=== PATIENT | female | born 1985 | race Hispanic/Latino ===

== ENCOUNTER 2022-02-22 20:20 | Emergency (ER) | payer SELFPAY ==
[2022-02-22] MEDS ORDERED: KETOROLAC 30 MG/ML INJ ONE (21:26)
[2022-02-22] MEDS ORDERED: ONDANSETRON 4 MG/2 ML VIAL ONE (21:26)
[2022-02-22] MEDS ORDERED: NA CHLORIDE 0.9% 1,000 ML ONE (21:26)
[2022-02-22] MEDS ORDERED: FAMOTIDINE 20 MG/2 ML VIAL IV ONE (21:27)
[2022-02-22 21:44] LABS: Urine Blood Trace-intact (Negative); Urine Glucose Negative (Negative); Urine Protein Negative (Negative); Urine Specific Gravity >=1.030 (1.005-1.030); Urine pH 6.5 (5.0-7.0)
[2022-02-22 22:03] LABS: Absolute Lymphocytes (CBC) 3.4 K/uL (0.7-4.9)
[2022-02-22 22:24] LABS: Urine Bacteria <20 /HPF (<20); Urine Mucus 1+ /HPF (NONE SEEN); Urine RBC <5 /HPF (NONE SEEN)
[2022-02-22 22:40] LABS: Hematocrit 36.8 % (36.0-45.0); Lymphocytes % 39.2 % (15.3-44.8); MPV 8.7 fL (7.6-11.3)
[2022-02-22 22:50] LABS: Albumin 4.1 g/dL (3.4-5.0); Bilirubin Total 0.3 mg/dL (0.2-1.0); Potassium 3.3 mmol/L (3.5-5.1); Protein, Total 7.6 g/dL (6.4-8.2)
[2022-02-23] MEDS ORDERED: CEFTRIAXONE 1000 MG/VIAL ONE
[2022-02-23] MEDS ORDERED: NA CHLORIDE 0.9% 50 ML ONE
--- NOTE | 2022-02-23 00:24 | ER ---
Nurse's Notes [facility] Name: Radha Hardin Age: 36 yrs Sex: Female : 1985 Arrival Date: 02/22/2022 Time: 20:24 Bed 15 Private MD: Diagnosis: Other cholelithiasis without obstruction Presentation: 02/22 20:45 Chief complaint: Patient states: right upper quadrant radiating to the back with nausea lg3 and body chills. started last night and went away and started back again today this afternoon and getting worse. Coronavirus screen: Client denies travel out of the [place] in the last 14 days. At this time, the client does not indicate any symptoms associated with coronavirus-19. Ebola Screen: No symptoms or risks identified at this time. Initial Sepsis Screen: Does the patient meet any 2 criteria? No. Patient's initial sepsis screen is negative. Does the patient have a suspected source of infection? No. Patient's initial sepsis screen is negative. Risk Assessment: Do you want to hurt yourself or someone else? Patient reports no desire to harm self or others. Onset of symptoms was February 21, 2022. 20:45 Method Of Arrival: Ambulatory lg3 20:45 Acuity: MORENITA 3 lg3 Triage Assessment: 20:48 General: Appears in no apparent distress. uncomfortable, Behavior is calm, cooperative. lg3 Pain: Complains of pain in right upper quadrant Pain radiates to back Pain currently is 10 out of 10 on a pain scale. EENT: No deficits noted. No signs and/or symptoms were reported regarding the EENT system. Neuro: No deficits noted. Level of Consciousness is awake, alert, obeys commands, Oriented to person, place, time, situation. Cardiovascular: No deficits noted. Denies chest pain, shortness of breath, Capillary refill < 3 seconds Clubbing of nail beds is absent JVD is absent Patient's skin is warm and dry. Respiratory: No deficits noted. Airway is patent Trachea midline Respiratory effort is even, unlabored, Respiratory pattern is regular, symmetrical. GI: Abdomen is round non-distended, Abd is soft X 4 quads Abdomen is tender to palpation in right upper quadrant Reports upper abdominal pain, cramping, nausea. : No deficits noted. No signs and/or symptoms were reported regarding the genitourinary system. Derm: No deficits noted. No signs and/or symptoms reported regarding the dermatologic system. Skin is intact, is healthy with good turgor, Skin is dry, Skin is pink, warm \T\ dry. Musculoskeletal: No deficits noted. No signs and/or symptoms reported regarding the musculoskeletal system. Circulation, motion, and sensation intact. Range of motion: intact in all extremities. 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 last was 2 years ago. lg3 Historical: - Allergies: 20:48 No Known Allergies; lg3 - Home Meds: 20:48 None [Active]; lg3 - PMHx: 20:48 None; lg3 - PSHx: 20:48 None; lg3 - Immunization history:: Adult Immunizations not up to date, Client reports receiving the 2nd dose of the Covid vaccine, moderna X2. - Social history:: Smoking status: Patient denies any tobacco usage or history of. Patient/guardian denies using alcohol, street drugs. Screenin:52 Abuse screen: Denies threats or abuse. Denies injuries from another. Nutritional lg3 screening: No deficits noted. Tuberculosis screening: No symptoms or risk factors identified. Fall Risk No fall in past 12 months (0 pts). No secondary diagnosis (0 pts). IV access (20 points). Ambulatory Aid- None/Bed Rest/Nurse Assist (0 pts). Gait- Normal/Bed Rest/Wheelchair (0 pts) Mental Status- Oriented to own ability (0 pts). Total Buckley Fall Scale indicates No Risk (0-24 pts). Assessment: 21:00 General: Appears uncomfortable, Behavior is calm, cooperative. Pain: Complains of pain ll3 in epigastric area Pain currently is 10 out of 10 on a pain scale. Pain began 1 day ago. Is continuous. Neuro: Level of Consciousness is awake, alert, obeys commands, Oriented to person, place, time, situation. Respiratory: Respiratory effort is even, unlabored, Respiratory pattern is regular, symmetrical. GI: Abdomen is round non-distended, Bowel sounds present X 4 quads. Abd is soft and non tender X 4 quads. Reports upper abdominal pain, Patient currently denies diarrhea, vomiting. Derm: Skin is pink, warm \T\ dry. 22:00 Reassessment: No changes from previously documented assessment. Patient and/or family ll3 updated on plan of care and expected duration. Pain level reassessed. Patient is alert, oriented x 3, equal unlabored respirations, skin warm/dry/pink. 23:37 Reassessment: Patient and/or family updated on plan of care and expected duration. Pain ll3 level reassessed. Patient is alert, oriented x 3, equal unlabored respirations, skin warm/dry/pink. States pain is 5/10 Patient states feeling better. 02/23 00:05 Reassessment: Pt tolerated PO challenge well, ERP notified. ll3 00:33 Reassessment: Patient and/or family updated on plan of care and expected duration. Pain vc1 level reassessed. Patient is alert, oriented x 3, equal unlabored respirations, skin warm/dry/pink. Patient states feeling better. Patient states symptoms have improved. Vital Signs: 02/22 20:45 BP 128 / 85; Pulse 64; Resp 17 S; Temp 97.9(O); Pulse Ox 100% on R/A; Weight 68.04 kg lg3 (R); Height 5 ft. 2 in. (157.48 cm) (R); Pain 10/10; 22:00 BP 113 / 66; Pulse 65; Resp 18; Pulse Ox 100% on R/A; ll3 23:00 BP 101 / 68; Pulse 57; Resp 17; Pulse Ox 100% on R/A; ll3 02/23 00:10 BP 106 / 71; Pulse 63; Resp 17; Pulse Ox 100% on R/A; ll3 02/22 20:45 Body Mass Index 27.44 (68.04 kg, 157.48 cm) lg3 ED Course: 02/22 20:24 Patient arrived in ED. kz 20:31 Pelon Almeida PA is PHCP. cp 20:31 Kang Donald MD is Attending Physician. cp 20:48 Triage completed. lg3 20:48 Arm band placed on left wrist. lg3 21:48 Initial lab(s) drawn, by me, sent to lab. Inserted saline lock: 22 gauge in right ll3 antecubital area, using aseptic technique. Blood collected. 23:35 Glendy Regalado RN is Primary Nurse. ll3 23:38 Patient has correct armband on for positive identification. Bed in low position. Call ll3 light in reach. Side rails up X 1. Adult w/ patient. 23:50 Hiram Garcia MD is Referral Physician. cp 02/23 00:11 No provider procedures requiring assistance completed. ll3 00:20 Abdomen Limited US In Process Unspecified. EDMS 00:30 IV discontinued, intact, bleeding controlled, No redness/swelling at site. Pressure vc1 dressing applied. Administered Medications: 02/22 21:48 Drug: NS 0.9% 1000 ml Route: IV; Rate: 1 bolus; Site: right antecubital; ll3 02/23 00:11 Follow up: Response: No adverse reaction; IV Status: Completed infusion; IV Intake: ll3 1000ml 02/22 21:48 Drug: Ketorolac 15 mg Route: IVP; Site: right antecubital; ll3 02/23 00:11 Follow up: Response: No adverse reaction; Pain is decreased ll3 02/22 21:50 Drug: Zofran (Ondansetron) 4 mg Route: IVP; Site: right antecubital; ll3 02/23 00:12 Follow up: Response: No adverse reaction ll3 02/22 21:53 Drug: Pepcid (famotidine) 20 mg Route: IVP; Site: right antecubital; ll3 02/23 00:12 Follow up: Response: No adverse reaction ll3 00:05 Drug: Rocephin - (cefTRIAXone) 1 grams Route: IVPB; Infused Over: 30 mins; Site: right ll3 antecubital; 00:31 Drug: GI Cocktail without - (Maalox Suspension 30 ml, Lidocaine Liquid 2 % 15 vc1 ml) Route: PO; 00:32 Follow up: Response: No adverse reaction; Medication administered at discharge. vc1 00:32 Drug: Bentyl (dicyclomine) 20 mg Route: PO; vc1 00:32 Follow up: Response: No adverse reaction; Medication administered at discharge. vc1 Intake: 00:11 IV: 1000ml; Total: 1000ml. ll3 Outcome: 02/22 23:51 Discharge ordered by . cp 02/23 00:32 Discharged to home ambulatory, with friend. vc1 Condition: good Discharge instructions given to patient, friend, Instructed on discharge instructions, follow up and referral plans. medication usage, Demonstrated understanding of instructions, follow-up care, medications, Prescriptions given X 2. 00:33 Patient left the ED. vc1 Signatures: Dispatcher [employer] EDMS Pelon Almeida PA PA cp Gibson, Lacie, RN RN lg3 Glendy Regalado RN RN ll3 Dorothy Aarngo RN RN vc1 Ellyn Vivar Corrections: (The following items were deleted from the chart) 02/22 23:10 23:10 GI: ll3 ll3 23:39 20:52 Fall Risk None identified. lg3 ll3
--- NOTE | 2022-02-23 00:24 | EDPHYS ---
Physician Documentation [facility] Name: Radha Hardin Age: 36 yrs Sex: Female : 1985 Arrival Date: 02/22/2022 Time: 20:24 Bed 15 Private MD: ED Physician Kang Donald HPI: 02/22 21:10 This 36 yrs old Female presents to ER via Ambulatory with complaints of cp Abdominal Pain - Upper right. 21:10 The patient presents with abdominal pain in the epigastric area, in the right upper cp quadrant. Onset: The symptoms/episode began/occurred yesterday, resolved and returned this afternoon. The symptoms radiate to back. Associated signs and symptoms: Pertinent positives: nausea, Pertinent negatives: chest pain, constipation, diarrhea, dysuria, fever, palpitations, shortness of breath, vomiting. 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 last was 2 years ago. lg3 Historical: - Allergies: 20:48 No Known Allergies; lg3 - Home Meds: 20:48 None [Active]; lg3 - PMHx: 20:48 None; lg3 - PSHx: 20:48 None; lg3 - Immunization history:: Adult Immunizations not up to date, Client reports receiving the 2nd dose of the Covid vaccine, moderna X2. - Social history:: Smoking status: Patient denies any tobacco usage or history of. Patient/guardian denies using alcohol, street drugs. ROS: 21:15 Constitutional: Negative for body aches, chills, fever, poor PO intake. cp 21:15 Eyes: Negative for injury, pain, redness, and discharge. cp 21:15 ENT: Negative for drainage from ear(s), ear pain, sore throat, difficulty swallowing, difficulty handling secretions. 21:15 Cardiovascular: Negative for chest pain, edema, palpitations. 21:15 Respiratory: Negative for cough, shortness of breath, wheezing. 21:15 Abdomen/GI: Positive for abdominal pain, nausea, Negative for vomiting, diarrhea, constipation. 21:15 Back: Positive for radiated pain, Negative for injury or acute deformity, decreased range of motion. 21:15 : Negative for urinary symptoms. 21:15 All other systems are negative. Exam: 21:20 Constitutional: The patient appears in no acute distress, alert, awake, cp non-diaphoretic, non-toxic, well developed, well nourished, uncomfortable. 21:20 Head/Face: Normocephalic, atraumatic. cp 21:20 Eyes: Periorbital structures: appear normal, Conjunctiva: normal, no exudate, no injection, Sclera: no appreciated abnormality, Lids and lashes: appear normal, bilaterally. 21:20 ENT: External ear(s): are unremarkable, Nose: is normal, Mouth: Lips: moist, Oral mucosa: moist, Posterior pharynx: Airway: no evidence of obstruction, patent. 21:20 Chest/axilla: Inspection: normal, Palpation: is normal, no crepitus, no tenderness. 21:20 Cardiovascular: Rate: normal, Rhythm: regular. 21:20 Respiratory: the patient does not display signs of respiratory distress, Respirations: normal, no use of accessory muscles, no retractions, labored breathing, is not present, Breath sounds: are clear throughout, no decreased breath sounds, no stridor, no wheezing. 21:20 Abdomen/GI: Inspection: abdomen appears normal, Bowel sounds: active, all quadrants, Palpation: soft, in all quadrants, moderate abdominal tenderness, in the epigastric area, rebound tenderness, is not appreciated, voluntary guarding, is elicited in the epigastric area. 21:20 Back: pain, that is moderate, of the mid back area, ROM is normal. Vital Signs: 20:45 BP 128 / 85; Pulse 64; Resp 17 S; Temp 97.9(O); Pulse Ox 100% on R/A; Weight 68.04 kg lg3 (R); Height 5 ft. 2 in. (157.48 cm) (R); Pain 10/10; 22:00 BP 113 / 66; Pulse 65; Resp 18; Pulse Ox 100% on R/A; ll3 23:00 BP 101 / 68; Pulse 57; Resp 17; Pulse Ox 100% on R/A; ll3 02/23 00:10 BP 106 / 71; Pulse 63; Resp 17; Pulse Ox 100% on R/A; ll3 02/22 20:45 Body Mass Index 27.44 (68.04 kg, 157.48 cm) lg3 MDM: 02/22 20:56 Patient medically screened. cp 23:50 Data reviewed: vital signs, nurses notes, lab test result(s), radiologic studies, cp ultrasound, and as a result, I will discharge patient. 23:50 Counseling: I had a detailed discussion with the patient and/or guardian regarding: the cp historical points, exam findings, and any diagnostic results supporting the discharge/admit diagnosis, lab results, radiology results, the need for outpatient follow up, for definitive care, a general surgeon, to return to the emergency department if symptoms worsen or persist or if there are any questions or concerns that arise at home. Response to treatment: the patient's symptoms have markedly improved after treatment, and as a result, I will discharge patient. ED course: VSS. Pain and nausea markedly improved. Will discharge to home for continued monitoring. 02/22 21:08 Order name: CBC with Diff cp 02/22 21:08 Order name: CMP cp 02/22 21:08 Order name: Lipase cp 02/22 21:08 Order name: Urine Microscopic Only cp 02/22 21:44 Order name: Urine Dipstick-Ancillary; Complete Time: 22:41 EDHI 02/22 22:41 Interpretation: Normal except: UKET Trace; UBLD Trace-intact. cp 02/22 21:08 Order name: Abdomen Limited US cp 02/23 00:20 Order name: Urine Culture EDHI 02/22 21:08 Order name: IV Saline Lock; Complete Time: 21:54 cp 18 21:08 Order name: Labs collected and sent; Complete Time: 21:54 cp 02/22 21:08 Order name: Urine Dipstick-Ancillary (obtain specimen); Complete Time: 21:54 cp 02/22 21:08 Order name: Urine Test (obtain specimen); Complete Time: 21:54 cp 02/22 21:08 Order name: NPO; Complete Time: 21:55 cp 02/22 23:48 Order name: PO challenge; Complete Time: 00:05 cp Administered Medications: 21:48 Drug: NS 0.9% 1000 ml Route: IV; Rate: 1 bolus; Site: right antecubital; ll3 02/23 00:11 Follow up: Response: No adverse reaction; IV Status: Completed infusion; IV Intake: ll3 1000ml 02/22 21:48 Drug: Ketorolac 15 mg Route: IVP; Site: right antecubital; ll3 02/23 00:11 Follow up: Response: No adverse reaction; Pain is decreased ll3 02/22 21:50 Drug: Zofran (Ondansetron) 4 mg Route: IVP; Site: right antecubital; ll3 02/23 00:12 Follow up: Response: No adverse reaction ll3 02/22 21:53 Drug: Pepcid (famotidine) 20 mg Route: IVP; Site: right antecubital; ll3 02/23 00:12 Follow up: Response: No adverse reaction ll3 00:05 Drug: Rocephin - (cefTRIAXone) 1 grams Route: IVPB; Infused Over: 30 mins; Site: right ll3 antecubital; 00:31 Drug: GI Cocktail without - (Maalox Suspension 30 ml, Lidocaine Liquid 2 % 15 vc1 ml) Route: PO; 00:32 Follow up: Response: No adverse reaction; Medication administered at discharge. vc1 00:32 Drug: Bentyl (dicyclomine) 20 mg Route: PO; vc1 00:32 Follow up: Response: No adverse reaction; Medication administered at discharge. vc1 Disposition: 00:44 Co-signature as Attending Physician, Kang Donald MD I agree with the assessment and kdr plan of care. Disposition Summary: 02/22/22 23:51 Discharge Ordered Location: Home cp Problem: new cp Symptoms: have improved cp Condition: Stable cp Diagnosis - Other cholelithiasis without obstruction cp Followup: cp - With: Hiram Garcia MD - When: 1 - 2 days - Reason: Recheck today's complaints Discharge Instructions: - Discharge Summary Sheet cp - Cholelithiasis cp Forms: - Medication Reconciliation Form cp - Thank You Letter cp - Antibiotic Education cp - Prescription Opioid Use cp Prescriptions: - Zofran 4 mg Oral Tablet - take 1 tablet by ORAL route every 12 hours As needed; 20 tablet; Refills: 0, cp Product Selection Permitted - Cipro 500 mg Oral Tablet - take 1 tablet by ORAL route every 12 hours for 7 days; 14 tablet; Refills: 0, cp Product Selection Permitted - dicyclomine 20 mg Oral Tablet - take 1 tablet by ORAL route 4 times per day As needed; 30 tablet; Refills: 0, cp Product Selection Permitted Signatures: Dispatcher [employer] MS Rittger, MD MD clay Kapadia Corey, PA PA cp Gibson, Lacie, RN RN lg3 Glendy Regalado, RN RN ll3 Dorothy Arango, RN RN vc1
[2022-02-23] MEDS ORDERED: LIDOCAINE VISCOUS 2% SOLN 15 ML UDC ONE (00:31)
[2022-02-23] MEDS ORDERED: DICYCLOMINE HCL 10 MG CAP ONE (00:31)
[2022-02-23] MEDS ORDERED: MAGNES/ALUMIN/SIMET 30ML UCUP ONE (00:31)
[2022-02-23 06:48] VITALS: TEMP 97.9; O2SAT 100
[2022-02-23 06:53] VITALS: BP 106/71
--- NOTE | 2022-02-23 08:50 | RAD REPORT ---
EXAM DESCRIPTION: US - Abdomen Exam Limited - 02/22/2022 10:22 pm CLINICAL HISTORY: RUQ/epigastric pain COMPARISON: No comparisons FINDINGS: The gallbladder demonstrates shadowing gallstone region gallbladder neck. Gallbladder appe ars distended. Gallbladder wall measures up to 3 mm. The common bile duct is normal measuring 3 mm. The liver demonstrates no findings of intrahepatic biliary dilatation. IMPRESSION: Cholelithiasis.
== END 2022-02-23 00:33 | disposition home or self-care (01) ==
LOC: ER 20:20
DX: K80.80 Other cholelithiasis without obstruction (principal)
CPT/HCPCS: 36415; 76705; 80053; 81003; 81015; 83690; 85025; 87086; 87088; 96361; 96374; 96375; 99284; J2405; J3490; J7030

== ENCOUNTER 2022-12-14 13:05 | Inpatient (IN) | payer SELFPAY ==
--- OUTSIDE RECORDS SUMMARY | 2022-12-14 13:07 | XMS REPORT | Continuity of Care Document ---
:1985 Author Organization [facility] t Address [address] [place] [address] Care Team Providers Name Role Phone GIANA PEREZ Primary Care Physician Unavailable Mac Cordero Attending Clinician Unavailable Gisella Wooten Attending Clinician Unavailable NORRIS THOMASON Attending Clinician Unavailable Doctor Unassigned, [place] Attending Clinician Unavailable PAMELA LOPEZ Attending Clinician Unavailable Mac Cordero Admitting Clinician Unavailable Payers Payer Name Policy Type Policy Number Effective Date Expiration Date S ource Problems Condition Condition Condition Status Onset Resolution Last Treating Co mments Source Name Details Category Date Date Treatment Clinician Date Second-deg Second-deg Disease Active 2007-11 U nivers ree ree 2-09 ity of perineal perineal 00:00: [place] laceration laceration 00 Me dical , with , with Branch delivery delivery Allergies, Adverse Reactions, Alerts Allergy Allergy Status Severity Reaction(s) Onset Inactive Treating Comm ents Source Name Type Date Date Clinician No Known DA Active U 2019-0 [facility] Allergie 6-28 Clear s 00:00: Issa 00 [facility] No Known DA Active U 2019-0 [facility] Allergie 6-28 Clear s 00:00: Issa 00 [facility] No Known DA Active U [facility] Allergie 1-27 Clear s 00:00: [place] [facility] NO KNOWN Drug Active Univers ALLERGIE Class ity of S [facility] Social History Social Habit Start Date Stop Date Quantity Comments Source Alcohol intake 2008-08-30 2008-08-30 Current University 00:00:00 00:00:00 non-drinker of [facility] alcohol Dickens (finding) Sex Assigned At [birth year] Universit y of 00:00:00 00:00:[address] [facility] Smoking Status Start Date Stop Date Source Never smoked tobacco [facility] Medications Ordered Filled Start Stop Current Ordering Indication Dosage Frequency Signature Comments Components Source Medication Medication Date Date Medication? Clinician (SIG) Name Name FERROUS 2007-11 Yes 1 oral Univers SULFATE 325 2-10 daily ity of MG (65 MG 08:32: [place] IRON) ORAL 35 Medical CPSR Branch 2007-11 Yes 1 oral Univers VITAMIN 2-10 daily ity of ORAL 08:32: [place] 35 Medical Branch Procedures Procedure Date / Time Performed Performing Clinician [facility] e REFERRAL- 2022-12-14 06:01:00 Doctor Unassigned, No [facility] [place] REQUEST/RESPONSE Name Medical Branch [id number] 2020-05-04 00:00:00 PERLY [facility] [id number] 2020-05-04 00:00:00 BRANDYY [facility] Encounters Start End Encounter Admission Attending Care Care Encounter Source Date/Time Date/Time Type Type Clinicians Facility Department ID 2020-05-07 Inpatient Maximos, [facility] OUTD [id number] [facility] Will [facility] MART [id number] [facility] 04:28:00 Pucmckennay, 86 Clear Gisella [facility] 2022-12-14 2022-12-14 Orders Doctor LAWRENCE [id number] Univers 00:00:00 00:00:00 Only UnassignedGRACE [id number] ity of [place] [facility] [id number] Julio as [phone] [facility] 009 Branch 2022-12-10 2022-12-10 Outpatient SFA SFA [id number] Jasvir 11:20:25 11:20:25 0203 F Roc 2022-11-24 2022-11-24 Outpatient [facility] [id number] Jasvir 09:51:39 09:51:39 0118 F Roc 2020-02-11 2020-02-11 Outpatient Isma LOPEZ [facility] [id number] Univers 13:00:00 13:00:00 KAMARTEODORO quintero f [facility] Results Test Description Test Time Test Comments Results Result [facility] e Comments BREAST ULTRASOUND 2022-11-29 BILATERAL 11:08:43 Name: Radha : 1985 Sex: F - BREAST ULTRASOUND BILATERALCOMPLETE ULTRASOUND OF BOTH BREASTS AND AXILLA: 11/29/2022LINICAL: Family history of breast cancer, Pain left breast, Abnormal Breast Exam. Comparison is made to exam dated 11/29/2022 mammogram - [facility] Color flow and real-time ultrasound of both breasts four quadrants, retroareolar, and axilla regions were performed. There is a 9 mm irregular mass in the left breast at 2 o'clock 6 cm from the nipple. Color flow imaging demonstrates that there is increased vascularity. There also is a lymph node with eccentric cortical thickening in the left axillary tail. There is a 1.4 cm oval mass in the left breast at 3 o'clock 3 cm from the nipple. Color flow imaging demonstrates that there is no vascularity present. No significant abnormalities were seen sonographically in the right axilla. Benign cysts and dilated ducts seen bilaterally. IMPRESSION: SUSPICIOUS OF MALIGNANCY The 9 mm irregular mass in the left breast at 2 o'clock needs histological evaluation. An ultrasound guided biopsy is recommended. The lymph node with eccentric cortical thickening in the left axillary tail needs histological evaluation. An ultrasound guided biopsy is recommended. The 1.4 cm oval mass in the left breast at 3 o'clock is probably benign. Abigail Shultz M.D. dm/:11/29/2022 11:08:43 Net Lead Developer: Brenda RUSH, [facility] BI-RADS: 4 Suspicious for malignancy DIAG MAMM 2022-11-29 BILATERAL ROCK 11:03:26 CAD DIGITAL Name: Radha: 1985 Sex: F - DIAG MAMM BILATERAL ROCK CAD DIGITALBILATERAL FIRST EVER DIGITAL DIAGNOSTIC MAMMOGRAM 3D/2D WITH CAD: 11/29/2022LINICAL: Per order, "unspecified lump in the left breast, inner quadrant with left nipple retraction". Per patient, lump is felt on 3 o'clock on the left breast x 1 week. Family history of breast cancer. Digital breast tomosynthesis was performed in addition to routine CC and MLO views. Current mammographic images were evaluated by [facility] CAD (computer-aided detection) software. No prior exams were available for comparison. The tissue of both breasts is heterogeneously dense. This may lower the sensitivity of mammography. There is architectural distortion in the left breast at 2 o'clock. There is nipple retraction associated with the architectural distortion. There is a pathological lymph node in the left axilla. No other significant masses, calcifications, or other findings are seen in either breast. IMPRESSION: INCOMPLETE: ADDITIONAL IMAGING EVALUATION NEEDEDBilateral ultrasound pending for additional evaluation. Abigail Shultz M.D. dm/:11/29/2022 11:03:26 Net Lead Developer: Yaneth RUSH, [facility] BI-RADS: 0 Incomplete: Additional Imaging Evaluation Needed CBC W/AUTO DIFF 2020-05-05 09:08:00 Test Item Value Reference Range Interpretation Comme nts WHITE BLOOD CELL (test code = WBC) 7.80 x10 3/uL 4.5-11.0 N RED BLOOD CELL (test code = RBC) 3.74 x10 6/uL 3.54-5.02 N HEMOGLOBIN (test code = HGB) 10.9 g/dL 11.0-15.0 L HEMATOCRIT (test code = HCT) 33.8 % 33.0-45.0 N MEAN CELL VOLUME (test code = MCV) 90.4 fL 81.0-99.0 N MEAN CELL HGB (test code = MCH) 29.1 pg 27.0-33.0 N MEAN CELL HGB CONCETRATION (test code = MCHC) 32.2 g/dL 33.0-37. 0 L RED CELL DISTRIBUTION WIDTH CV (test code = RDW) 12.6 % 11.5- 14.5 N RED CELL DISTRIBUTION WIDTH SD (test code = RDW-SD) 40.8 fL 37 .0-54.0 N PLATELET COUNT (test code = PLT) 233 x10 3/uL 150-400 N MEAN PLATELET VOLUME (test code = MPV) 11.8 fL 7.0-9.0 H NEUTROPHIL % (test code = NT%) 63.9 % 56.0-77.0 N IMMATURE GRANULOCYTE % (test code = IG%) 0.3 % 0.0-2.0 N LYMPHOCYTE % (test code = LY%) 29.6 % 14.0-32.0 N MONOCYTE % (test code = MO%) 5.6 % 4.8-9.0 N EOSINOPHIL % (test code = EO%) 0.3 % 0.3-3.7 N BASOPHIL % (test code = BA%) 0.3 % 0.0-2.0 N NUCLEATED RBC % (test code = NRBC%) 0.0 % 0-0 N NEUTROPHIL # (test code = NT#) 4.99 x10 3/uL 2.0-7.6 N IMMATURE GRANULOCYTE # (test code = IG#) 0.02 x10 3/uL 0.00-0.03 N LYMPHOCYTE # (test code = LY#) 2.31 x10 3/uL 1.0-3.8 N MONOCYTE # (test code = MO#) 0.44 x10 3/uL 0.1-0.8 N EOSINOPHIL # (test code = EO#) 0.02 x10 3/uL 0.0-0.2 N BASOPHIL # (test code = BA#) 0.02 x10 3/uL 0.0-0.2 N NUCLEATED RBC # (test code = NRBC#) 0.00 x10 3/uL 0.0-0.1 N MANUAL DIFF REQUIRED (test code = MDIFF) NO RAPID PLASMA [id number] 11:19:00 Test Item Value Reference Range Interpretation Comments RAPID PLASMA REAGIN (test code = NONREACTIVE NONREACTIVE RPR) AG HEPATITIS B [id number] 11:19:00 Test Item Value Reference Range Interpretation Comments AG HEPATITIS B SURFACE NON REACTIVE INDEX NonReactive (test code = HBSAG) AB HIV 1 11:19:00 Test Item Value Reference Range Interpretation Comments AB HIV 1 2 (test code = NONREACTIVE INDEX NONREACTIVE [id number]) RAPID PLASMA [id number] 11:12:00 Test Item Value Reference Range Interpretation Comments RAPID PLASMA REAGIN (test code = NONREACTIVE NONREACTIVE RPR) AG HEPATITIS B [id number] 11:12:00 Test Item Value Reference Range Interpretation Comments AG HEPATITIS B SURFACE NON REACTIVE INDEX NonReactive (test code = HBSAG) AB HIV 1 11:12:00 Test Item Value Reference Range Interpretation Comments AB HIV 1 2 (test code = [id number]) INDEX NONREACTIVE RAPID PLASMA [id number] 06:02:00 Test Item Value Reference Range Interpretation Comments RAPID PLASMA REAGIN (test code = RPR) NONREACTIVE AG HEPATITIS B [id number] 06:02:00 Test Item Value Reference Range Interpretation Comments AG HEPATITIS B SURFACE NON REACTIVE INDEX NonReactive (test code = HBSAG) AB HIV 1 06:02:00 Test Item Value Reference Range Interpretation Comments AB HIV 1 2 (test code = [id number]) INDEX NONREACTIVE CORD ARTERIAL BLOOD [id number] 05:53:00 Test Item Value Reference Range Interpretation Comments CORD BLOOD PH (test code = PH/C) 7.17 7.18-7.38 L CORD BLOOD PCO2 (test code = 58 mmHg 32-66 N PCO2/C) CORD BLOOD PO2 (test code = 12 mmHg 6-30 N PO2/C) CORD BLOOD HCO3 (test code = 21 mmol/L 17-27 N HCO3/C) BASE EXCESS CORD (test code = -7.0 mmol/L -8.0-0.0 N SARANYA/C) O2 SATURATION (test code = O2S/C) 9 % 72-77 L CORD VENOUS BLOOD [id number] 05:53:00 Test Item Value Reference Range Interpretation Comments CORD VENOUS PH (test code = PHCV) 7.30 7.25-7.45 N CORD VENOUS PCO2 (test code = 40 mmHg 27-49 N PCO2CV) CORD VENOUS PO2 (test code = 18 mmHg 17-41 N PO2CV) CORD VENOUS HCO3 (test code = 20.2 MMOL/L 12-28 N HCO3CV) CORD VENOUS BASE EXCESS (test -6.0 mmol/L -8.0-0.00 N code = BEXCV) CORD VENOUS 02 SAT (test code = 23 % O2SCV) CBC W/AUTO [id number] 05:26:00 Test Item Value Reference Range Interpretation Comments WHITE BLOOD CELL (test code = 6.87 x10 3/uL 4.5-11.0 N WBC) RED BLOOD CELL (test code = 4.23 x10 6/uL 3.54-5.02 N RBC) HEMOGLOBIN (test code = HGB) 12.6 g/dL 11.0-15.0 N HEMATOCRIT (test code = HCT) 38.3 % 33.0-45.0 N MEAN CELL VOLUME (test code = 90.5 fL 81.0-99.0 N MCV) MEAN CELL HGB (test code = MCH) 29.8 pg 27.0-33.0 N MEAN CELL HGB CONCETRATION 32.9 g/dL 33.0-37.0 L (test code = MCHC) RED CELL DISTRIBUTION WIDTH CV 12.5 % 11.5-14.5 N (test code = RDW) RED CELL DISTRIBUTION WIDTH SD 40.8 fL 37.0-54.0 N (test code = RDW-SD) PLATELET COUNT (test code = 258 x10 3/uL 150-400 N PLT) MEAN PLATELET VOLUME (test code 10.8 fL 7.0-9.0 H = MPV) NEUTROPHIL % (test code = NT%) 65.1 % 56.0-77.0 N IMMATURE GRANULOCYTE % (test 0.6 % 0.0-2.0 N code = IG%) LYMPHOCYTE % (test code = LY%) 29.0 % 14.0-32.0 N MONOCYTE % (test code = MO%) 4.9 % 4.8-9.0 N EOSINOPHIL % (test code = EO%) 0.1 % 0.3-3.7 L BASOPHIL % (test code = BA%) 0.3 % 0.0-2.0 N NUCLEATED RBC % (test code = 0.0 % 0-0 N NRBC%) NEUTROPHIL # (test code = NT#) 4.47 x10 3/uL 2.0-7.6 N IMMATURE GRANULOCYTE # (test 0.04 x10 3/uL 0.00-0.03 H code = IG#) LYMPHOCYTE # (test code = LY#) 1.99 x10 3/uL 1.0-3.8 N MONOCYTE # (test code = MO#) 0.34 x10 3/uL 0.1-0.8 N EOSINOPHIL # (test code = EO#) 0.01 x10 3/uL 0.0-0.2 N BASOPHIL # (test code = BA#) 0.02 x10 3/uL 0.0-0.2 N NUCLEATED RBC # (test code = 0.00 x10 3/uL 0.0-0.1 N NRBC#) MANUAL DIFF REQUIRED (test code NO = MDIFF)
[2022-12-14 14:03] LABS: Urine Blood Trace-intact (Negative); Urine Glucose Negative (Negative); Urine Protein Negative (Negative); Urine Specific Gravity >=1.030 (1.005-1.030); Urine pH 6.5 (5.0-7.0)
[2022-12-14] MEDS ORDERED: ONDANSETRON 4 MG/2 ML VIAL ONE (14:03)
[2022-12-14] MEDS ORDERED: NA CHLORIDE 0.9% 1,000 ML ONE (14:03)
[2022-12-14] MEDS ORDERED: HYDROMORPHONE HCL 0.5 MG/0.5 ML INJ ONE (14:03)
[2022-12-14] MEDS ORDERED: FAMOTIDINE 20 MG/2 ML VIAL IV ONE (14:03)
--- NOTE | 2022-12-14 14:41 | RAD REPORT ---
EXAM DESCRIPTION: US - Abdomen Exam Limited - 12/14/2022 2:32 pm CLINICAL HISTORY: ABD PAIN COMPARISON: Abdomen Exam Limited dated 02/22/2022 FINDINGS: The gallbladder demonstrates extensive sludge and stone formation. No pericholecystic flui d or gallbladder wall thickening. The common bile duct is normal measuring 5 mm. The liver demonstrates no findings of intrahepatic biliary dilatation. IMPRESSION: Extensive cholelithiasis and gallbladder sludge.
[2022-12-14 15:35] LABS: Albumin 3.6 g/dL (3.4-5.0); Bilirubin Total 0.3 mg/dL (0.2-1.0); Potassium 3.9 mmol/L (3.5-5.1); Protein, Total 7.1 g/dL (6.4-8.2)
[2022-12-14 16:40] LABS: Absolute Lymphocytes (CBC) 2.6 K/uL (0.7-4.9); Hematocrit 34.9 % (36.0-45.0); Lymphocytes % 37.1 % (15.3-44.8); MCV 89.9 fL (80-100); MPV 8.3 fL (7.6-11.3); RBC Red Blood Cell Count 3.88 M/uL (3.86-4.86)
--- NOTE | 2022-12-14 17:25 | ER ---
Nurse's Notes [facility] [place] [facility] Name: Radha Singh Age: 37 yrs Sex: Female : 1985 Arrival Date: 12/14/2022 Time: 13:10 Bed 8 Private MD: Diagnosis: Symptomatic Cholelithiasis;Upper abdominal pain, unspecified;Nausea Presentation: 12/14 13:26 Chief complaint: Patient states: Right abdominal pain radiates to right flank, nausea. ld1 Reports "This feels like when I had a Kidney Stone.". Coronavirus screen: At this time, the client does not indicate any symptoms associated with coronavirus-19. Ebola Screen: No symptoms or risks identified at this time. Initial Sepsis Screen: Does the patient meet any 2 criteria? No. Patient's initial sepsis screen is negative. Does the patient have a suspected source of infection? No. Patient's initial sepsis screen is negative. Risk Assessment: Do you want to hurt yourself or someone else? Patient reports no desire to harm self or others. Onset of symptoms was December 14, 2022. 13:26 Method Of Arrival: Ambulatory ld1 13:26 Acuity: MORENITA 3 ld1 Triage Assessment: 13:27 General: Appears in no apparent distress. uncomfortable, Behavior is calm, cooperative, ld1 appropriate for age. Pain: Complains of pain in back, right upper quadrant and right lower quadrant Pain radiates to right low back Pain currently is 10 out of 10 on a pain scale. Quality of pain is described as sharp, shooting, throbbing, Pain began 1 week Is continuous. EENT: No signs and/or symptoms were reported regarding the EENT system. Neuro: Level of Consciousness is awake, alert, obeys commands, Oriented to person, place, time, situation. Cardiovascular: Capillary refill < 3 seconds Patient's skin is warm and dry. Respiratory: Airway is patent Respiratory effort is even, unlabored. GI: Abdomen is round non-distended. : No signs and/or symptoms were reported regarding the genitourinary system. Derm: No signs and/or symptoms reported regarding the dermatologic system. Musculoskeletal: No signs and/or symptoms reported regarding the musculoskeletal system. Historical: - Allergies: 13:27 No Known Allergies; ld1 - Home Meds: 13:27 None [Active]; ld1 - PMHx: 13:27 None; ld1 - PSHx: 13:27 None; ld1 - Immunization history:: Adult Immunizations up to date, Client reports having NOT received the Covid vaccine. - Social history:: Smoking status: Patient denies any tobacco usage or history of. Patient/guardian denies using alcohol. Screenin:30 [facility] ED Fall Risk Assessment (Adult) History of falling in the last 3 months, mb9 including since admission No falls in past 3 months (0 pts) Confusion or Disorientation No (0 pts) Intoxicated or Sedated No (0 pts) Impaired Gait No (0 pts) Mobility Assist Device Used No (0 pt) Altered Elimination No (0 pt) Score/Fall Risk Level 0 - 2 = Low Risk Oriented to surroundings. Abuse screen: Denies threats or abuse. Nutritional screening: No deficits noted. Tuberculosis screening: No symptoms or risk factors identified. Assessment: 14:18 Reassessment: pt taken to ultrasound via wheelchair. mb9 14:19 General: Appears uncomfortable, Behavior is cooperative. Pain: Complains of pain in mb9 abdomen Pain radiates to right low back and right lower quadrant and right upper quadrant Pain currently is 8 out of 10 on a pain scale. Quality of pain is described as sharp, shooting. Neuro: Rodriguez Agitation-Sedation Scale (RASS): 0 - Alert and Calm Level of Consciousness is awake, alert, obeys commands, Oriented to person, place, time, situation, Appropriate for age. Cardiovascular: Capillary refill < 3 seconds is brisk Patient's skin is warm and dry. Respiratory: Airway is patent Respiratory effort is even, unlabored, Respiratory pattern is regular, symmetrical, Breath sounds are clear bilaterally. GI: Abdomen is flat, non-distended, Bowel sounds present X 4 quads. Abd is soft Abdomen is tender to palpation in right upper quadrant and right lower quadrant. : Urine is cloudy. EENT: No signs and/or symptoms were reported regarding the EENT system. Derm: Skin is pink, warm \\T\\ dry. Musculoskeletal: Range of motion: intact in all extremities. 15:39 Reassessment: No changes from previously documented assessment. Patient and/or family mb9 updated on plan of care and expected duration. Pain level reassessed. Patient is alert, oriented x 3, equal unlabored respirations, skin warm/dry/pink. Patient states feeling better. Patient states symptoms have improved. Vital Signs: 13:26 BP 118 / 73; Pulse 71; Resp 18; Temp 98.4(O); Pulse Ox 100% on R/A; Weight 63.5 kg; ld1 Height 5 ft. 0 in. (152.40 cm); Pain 10/10; 14:18 BP 115 / 76; Pulse 75; Resp 18; Pulse Ox 100% ; mb9 15:10 BP 120 / 71; Pulse 72; Resp 16; Pulse Ox 100% ; mb9 15:38 BP 109 / 69; Pulse 74; Resp 16; Pulse Ox 100% ; ko1 13:26 Body Mass Index 27.34 (63.50 kg, 152.40 cm) ld1 ED Course: 13:10 Patient arrived in ED. am2 13:23 Chance Vasquez DO is Attending Physician. ms3 13:27 Triage completed. ld1 13:27 Arm band placed on right wrist. ld1 13:30 Fall risk band placed. Placed in gown. Bed in low position. Call light in reach. Client mb9 placed on continuous cardiac and pulse oximetry monitoring. NIBP monitoring applied. 13:35 Alena Lainez, PETRONA is Primary Nurse. mb9 14:17 CBC with Diff Sent. mb9 14:17 CMP Sent. mb9 14:17 Lipase Sent. mb9 14:33 Abdomen Limited US In Process Unspecified. EDMS 17:25 Frank Salmeron MD is Hospitalizing Provider. ms3 21:18 No provider procedures requiring assistance completed. Patient admitted, IV remains in mb9 place. Administered Medications: 14:10 Drug: Zofran (Ondansetron) 4 mg Route: IVP; Site: left antecubital; mb9 14:55 Follow up: Response: No adverse reaction mb9 14:17 Drug: NS 0.9% 1000 ml Route: IV; Rate: 1 bolus; Site: left antecubital; mb9 14:17 Drug: Pepcid (famotidine) 20 mg Route: IVP; Site: left antecubital; mb9 14:55 Follow up: Response: No adverse reaction mb9 14:17 Drug: Dilaudid (HYDROmorphone) 0.5 mg Route: IVP; Site: left antecubital; mb9 14:54 Follow up: Response: No adverse reaction mb9 17:48 Drug: cefOXitin 1 grams Route: IVPB; Infused Over: 30 mins; Site: left antecubital; ko1 17:56 CANCELLED (Physician Discretion; md order): Zosyn (piperacillin-tazobactam) 3.375 grams ko1 IVPB once over 60 mins; (mix in NS 100 mL) Outcome: 17:25 Decision to Hospitalize by Provider. ms3 20:29 Admitted to Med/surg Report called to Attempted to call report. Was told by Zehra the tw5 nurse is busy doing tube feeding and will have to call back. 21:18 Admitted to Tele accompanied by tech, via wheelchair, room 427, Report called to lisette Gasca RN 21:18 Condition: stable 22:18 Patient left the ED. lisette Signatures: Dispatcher [employer] EDMS Leta Kay amChance Samano, DO DO ms3 Keya Lane, RN RN ld1 Jossy Wade tw5 Jackie Saez, RN RN ko1 Alena Lainez, RN RN bruce9
--- NOTE | 2022-12-14 17:25 | EDPHYS ---
Physician Documentation [facility] Name: Radha Singh Age: 37 yrs Sex: Female : 1985 Arrival Date: 12/14/2022 Time: 13:10 Bed 8 Private MD: ED Physician Chance Vasquez HPI: 12/14 14:18 This 37 yrs old Female presents to ER via Ambulatory with complaints of ms3 Abdominal Pain, Nausea. 14:18 37-year-old female with no past medical history presents for right upper quadrant ms3 abdominal pain that has been ongoing for 1 week. Patient states her pain is a 10/10 described as pressure. Patient endorses nausea and fever up to 101 F yesterday. Patient denies vomiting, chest pain, shortness of breath, diarrhea. Patient denies alleviating or inciting factors.. Historical: - Allergies: 13:27 No Known Allergies; ld1 - Home Meds: 13:27 None [Active]; ld1 - PMHx: 13:27 None; ld1 - PSHx: 13:27 None; ld1 - Immunization history:: Adult Immunizations up to date, Client reports having NOT received the Covid vaccine. - Social history:: Smoking status: Patient denies any tobacco usage or history of. Patient/guardian denies using alcohol. ROS: 14:18 Constitutional: Negative for fever, and chills. Neck: Negative for injury, pain, and ms3 swelling, Cardiovascular: Negative for chest pain, and palpitations. Respiratory: Negative for shortness of breath, cough, wheezing, and pleuritic chest pain. 14:18 Abdomen/GI: Positive for abdominal pain. 14:18 All other systems are negative. Exam: 14:18 Constitutional: This is a well developed, well nourished patient who is awake, alert, ms3 and in no acute distress. Head/Face: Normocephalic, atraumatic. Neck: Trachea midline, no cervical lymphadenopathy. Supple, full range of motion without nuchal rigidity, or vertebral point tenderness. No Meningismus. Chest/axilla: Normal chest wall appearance and motion. Nontender with no deformity. Cardiovascular: Regular rate and rhythm with a normal S1 and S2. No gallops, murmurs, or rubs. Normal PMI, no JVD. No pulse deficits. Respiratory: Lungs have equal breath sounds bilaterally, clear to auscultation and percussion. No rales, rhonchi or wheezes noted. No increased work of breathing, no retractions or nasal flaring. 14:18 Back: No spinal tenderness. No costovertebral tenderness. Full range of motion. Neuro: Awake and alert, GCS 15, oriented to person, place, time, and situation. Cranial nerves II-XII grossly intact. Motor strength 5/5 in all extremities. Sensory grossly intact. Cerebellar exam normal. Normal gait. 14:18 Abdomen/GI: Inspection: abdomen appears normal, Bowel sounds: normal, Palpation: moderate abdominal tenderness, in the right upper quadrant. Vital Signs: 13:26 BP 118 / 73; Pulse 71; Resp 18; Temp 98.4(O); Pulse Ox 100% on R/A; Weight 63.5 kg; ld1 Height 5 ft. 0 in. (152.40 cm); Pain 10/10; 14:18 BP 115 / 76; Pulse 75; Resp 18; Pulse Ox 100% ; mb9 15:10 BP 120 / 71; Pulse 72; Resp 16; Pulse Ox 100% ; mb9 15:38 BP 109 / 69; Pulse 74; Resp 16; Pulse Ox 100% ; ko1 13:26 Body Mass Index 27.34 (63.50 kg, 152.40 cm) ld1 MDM: 13:56 Patient medically screened. ms3 17:46 Differential diagnosis: Nonspecific abd pain, cholecystitis, pancreatitis. Data ms3 reviewed: vital signs, nurses notes, lab test result(s), radiologic studies, and as a result, I will admit patient. Consideration of Admission/Observation Patient was admitted/placed on observation. Management of patient was discussed with the following: Dr Salmeron- General Surgery. Place under his service for surgery tomorrow.. I considered the following discharge prescriptions or medication management in the emergency department Medications were administered in the Emergency Department. See MAR. Counseling: I had a detailed discussion with the patient and/or guardian regarding: the historical points, exam findings, and any diagnostic results supporting the discharge/admit diagnosis, lab results, radiology results, the need for further work-up and treatment in the hospital. ED course: Discussed plan for admission with cholecystectomy tomorrow with patient via negative cleaner Carol T [id number]. All questions answered.. 12/14 13:55 Order name: CBC with Diff; Complete Time: 17:53 ms3 12/14 13:55 Order name: CMP; Complete Time: 17:53 ms3 12/14 13:55 Order name: Lipase; Complete Time: 17:53 ms3 12/14 14:04 Order name: Urine Dipstick-Ancillary; Complete Time: 14:46 EDMS 12/14 14:12 Order name: Urine --Ancillary (enter results) bd 12/14 17:43 Order name: SARS RAPID mb9 12/14 17:45 Order name: Basic Metabolic Panel EDMS 12/14 17:45 Order name: Basic Metabolic Panel EDMS 12/14 17:45 Order name: CBC with Automated Diff EDMS 12/14 17:45 Order name: CBC with Automated Diff EDMS 12/14 17:45 Order name: Lipase EDMS 12/14 17:45 Order name: Lipase EDMS 12/14 17:45 Order name: Liver (Hepatic) Function EDMS 12/14 17:45 Order name: Liver (Hepatic) Function EDMS 12/14 13:55 Order name: Abdomen Limited US; Complete Time: 14:46 ms3 12/14 13:55 Order name: IV Saline Lock; Complete Time: 14:17 ms3 12/14 13:55 Order name: Labs collected and sent; Complete Time: 14:17 ms3 12/14 14:32 Order name: Labs - recollect needed: recollet green top; Complete Time: 14:54 bd 12/14 14:51 Order name: Labs - recollect needed: recollect lavender top; Complete Time: 14:54 bd 12/14 17:45 Order name: NPO EDMS 12/14 17:47 Order name: Regular, Age Appropriate EDMS 12/14 17:57 Order name: Urine --Ancillary (enter results) bd 12/14 18:33 Order name: Urine --Ancillary EDMS Administered Medications: 14:10 Drug: Zofran (Ondansetron) 4 mg Route: IVP; Site: left antecubital; mb9 14:55 Follow up: Response: No adverse reaction mb9 14:17 Drug: NS 0.9% 1000 ml Route: IV; Rate: 1 bolus; Site: left antecubital; mb9 14:17 Drug: Pepcid (famotidine) 20 mg Route: IVP; Site: left antecubital; mb9 14:55 Follow up: Response: No adverse reaction mb9 14:17 Drug: Dilaudid (HYDROmorphone) 0.5 mg Route: IVP; Site: left antecubital; mb9 14:54 Follow up: Response: No adverse reaction mb9 17:48 Drug: cefOXitin 1 grams Route: IVPB; Infused Over: 30 mins; Site: left antecubital; ko1 17:56 CANCELLED (Physician Discretion; md order): Zosyn (piperacillin-tazobactam) 3.375 grams ko1 IVPB once over 60 mins; (mix in NS 100 mL) Disposition Summary: 12/14/22 17:25 Hospitalization Ordered Hospitalization Status: Inpatient Admission ms3 Provider: Frank Salmeron ms3 Location: Telemetry/[facility] (Inpatient) ms3 Condition: Stable ms3 Problem: new ms3 Symptoms: are unchanged ms3 Bed/Room Type: Standard ms3 Room Assignment: 427(12/14/22 20:23) cg Diagnosis - Symptomatic Cholelithiasis ms3 - Upper abdominal pain, unspecified ms3 - Nausea ms3 Forms: - Medication Reconciliation Form ms3 - SBAR form ms3 Signatures: Dispatcher [employer] Danisha Em Cindy, RN RN cg Chance Vasquez DO DO ms3 Keya Lane RN RN ld1 Jackie Saez RN RN ko1 Alena Lainez RN RN mb9 Corrections: (The following items were deleted from the chart) 17:56 17:28 Zosyn (piperacillin-tazobactam) 3.375 grams IVPB once over 60 mins; (mix in NS ko1 100 mL) ordered. ms3 17:56 17:43 Zosyn (piperacillin-tazobactam) 3.375 grams IVPB once over 60 mins; (mix in NS ko1 100 mL) ordered. ko1 20:23 17:25 ms3 cg
[2022-12-14] MEDS ORDERED: PIPERACIL/TAZO 3.375 GM VIAL IV ONE (17:39)
[2022-12-14] MEDS ORDERED: ONDANSETRON 4 MG/2 ML VIAL IV PRN (17:40)
[2022-12-14] MEDS ORDERED: NA CHLORIDE 0.9% 100 ML ONE (17:41)
[2022-12-14] MEDS ORDERED: NA CHLORIDE 0.9% 50 ML ONE (17:49)
[2022-12-14] MEDS ORDERED: CEFOXITIN SODIUM 1 GM/VIAL ONE (17:49)
[2022-12-14] MEDS: CEFOXITIN 1 GM in NA CHLORIDE 0.9% 50 ML IVPB SCH ×2 (18:00→23:26)
[2022-12-14] MEDS: D5 0.45 NS 1,000 ML IV SCH (18:00)
[2022-12-14 18:33] LABS: Urine Specific Gravity/Preg >1.030 (1.005-1.030)
[2022-12-14 18:33] LABS: Urine Specific Gravity/Preg >1.030 (1.005-1.030)
[2022-12-14 18:35] LABS: SARS-CoV-2 Antigen Rapid Res Negative (Negative)
[2022-12-14] MEDS ORDERED: D5 0.45 NS 1,000 ML IV ONE (18:54)
[2022-12-14] MEDS: MORPHINE 4 MG/ML SYR IV PRN (22:49)
[2022-12-14 23:06] VITALS: BMI 28.3
[2022-12-15] MEDS: NA CHLORIDE 0.9% 1,000 ML IV SCH ×4 (01:39→23:39)
[2022-12-15] MEDS: D5 0.45 NS 1,000 ML IV SCH (02:00)
[2022-12-15 04:18] LABS: Absolute Lymphocytes (CBC) 2.1 K/uL (0.7-4.9); Hematocrit 36.1 % (36.0-45.0); Lymphocytes % 38.2 % (15.3-44.8); MCV 90.9 fL (80-100); MPV 8.3 fL (7.6-11.3); RBC Red Blood Cell Count 3.97 M/uL (3.86-4.86)
[2022-12-15 04:34] LABS: ALT/SGPT 24 U/L (13-56); AST/SGOT 20 U/L (15-37); Albumin 3.1 g/dL (3.4-5.0); Alkaline Phosphatase 89 U/L (45-117); BUN Blood Urea Nitrogen 7 mg/dL (7-18); Bicarbonate 24 mmol/L (21-32); Bilirubin Total 0.3 mg/dL (0.2-1.0); Glomerular Filtration Rate 117 ml/min (=/>90); Glucose Level 115 mg/dL (74-106); Lipase 277 U/L (73-393); Potassium 3.8 mmol/L (3.5-5.1); Protein, Total 6.5 g/dL (6.4-8.2); Sodium Level 141 mmol/L (136-145)
[2022-12-15 04:48] LABS: Bilirubin Direct < 0.1 mg/dL (0-0.2)
[2022-12-15] MEDS: CEFOXITIN 1 GM in NA CHLORIDE 0.9% 50 ML IVPB SCH ×4 (06:03→23:39)
[2022-12-15] MEDS: MORPHINE 4 MG/ML SYR IV PRN (08:39)
[2022-12-15] MEDS ORDERED: FENTANYL CITR 100 MCG/2 ML ONE ×2 (12:21→13:20)
[2022-12-15] MEDS ORDERED: propofoL 200 MG/20 ML VIAL IV ONE (12:21)
[2022-12-15] MEDS ORDERED: ROCURONIUM 50 MG/5 ML VIAL IV ONE (12:22)
[2022-12-15] MEDS ORDERED: MIDAZOLAM HCL 2 MG/2 ML INJ ONE (12:22)
[2022-12-15] MEDS ORDERED: LIDOCAINE 2% MPF 5 ML VIAL ONE (12:22)
[2022-12-15] MEDS ORDERED: ONDANSETRON 4 MG/2 ML VIAL ONE ×2 (12:24→12:54)
[2022-12-15] MEDS ORDERED: KETOROLAC 30 MG/ML INJ ONE (12:53)
--- NOTE | 2022-12-15 12:53 | P.HP ---
Date of Service: 12/15/22 PC: This 37-year-old female presented to the emergency room with some rare right upper quadrant abdominal pain for diagnosis and treatment. HPC: This patient, has been having right upper quadrant abdominal pain off and on for the last few weeks. Pain became extreme yesterday. She went to the emergency room last night. She was diagnosed with cholecystitis with cholelithiasis. She was admitted at that time for biliary colic. She is still having pain today and while she says it has moderated she is still very uncomfortable. PSHx: Negative PMHx: 2 para 2 Social Hx: No known allergies Sys R: No cough, wheeze, shortness of breath. No chest pain or palpitations. Denies any urinary complaints O/E: Awake alert mildly uncomfortable at the moment vital signs are stable HEENT: Nonicteric Chest: Air entry equal bilaterally Abd: Tender in the right upper quadrant Hollister: Intact Data: Has documented cholelithiasis Impression: Cholelithiasis with cholecystitis, biliary colic Plan: I will take to the operating room for laparoscopic possible open cholecystectomy with cholangiogram. The risks of this procedure have been discussed. The possibility of bleeding, infection, injury to bile ducts blood vessels of the intestines has been described. The possible need for an open and/or further surgeries or procedures was discussed. She understands and wants to proceed.
[2022-12-15] MEDS ORDERED: GLYCOPYRROLATE 0.2 MG/ML SYR ONE (13:36)
[2022-12-15] MEDS ORDERED: NEOSTIGMINE 1 MG/ML -5 ML ONE (13:37)
--- NOTE | 2022-12-15 13:53 | P.OP ---
Preoperative diagnosis: Cholecystitis with cholelithiasis Postoperative diagnosis: The same Primary procedure: Laparoscopic cholecystectomy Secondary procedure: Cholangiogram Anesthesia: General Estimated blood loss: Less than 10 cc Specimen: Gallbladder and contents Operative Technique: The patient was brought to the operating room and placed supine on the table. After the induction of adequate general endotracheal anesthesia, the area of the abdomen was prepped with DuraPrep solution, she was draped in usual aseptic manner. A subumbilical incision was made. This was brought down through the skin and subcutaneous tissue. The Visiport was used to enter the peritoneal cavity and create a pneumoperitoneum to approximately 12 mmHg. Under direct vision a 5 mm trocar was placed in the upper midline, and 2 other 5 mm trocars on the right lateral side of the abdomen. The anterior abdominal wall was down tap blocks 1.25% Marcaine. The grasper was placed on the fundus of the gallbladder. Another 1 done by Delatrore's pouch. This area was then be very tense and edematous. We could see that it was quite inflamed with injection of the subcutaneous vessels. Applying gentle traction we were able to dissect out and exposed the cystic duct and artery. Having obtained the critical view, clip was placed between the gallbladder and the cystic duct. An epi was now made into the cystic duct through which we obtained a cholangiogram the cholangiogram good demonstrated good flow of contrast into the duodenum. We also able to illustrate the upper radicles. No gross filling defect was noted. The catheter was withdrawn. Clips were now placed on the distal portion of the cystic duct. The catheter having been removed the cystic duct was transected. The cystic artery was still within a similar fashion. The gallbladder was dissected free from the liver bed and brought up to our umbilical incision at this point it was necessary to open her umbilical skin incision to allow the aggression of this large dilated gallbladder with a huge stone stuck in the fundus. Having remove the gallbladder from the peritoneal cavity was inspected to ensure adequate hemostasis. Small amount of bleeding on the right anterior abdominal wall was controlled using an Endo Close. The umbilical defect was closed again with the Endo Close 2 sutures were placed in this area. At this point the pneumoperitoneum was collapsed, the sutures tied, and cara were applied to the skin. The patient was in a stable condition was sent to the recovery room. Needle sponge instrument count were correct. No drains were placed. Complications: None Transferred to: Recovery Room Condition: Good
[2022-12-15 14:02] VITALS: O2SAT 100
[2022-12-15] MEDS ORDERED: HYDROCODONE/APAP 7.5/325 MG TAB PO PRN (14:04)
--- NOTE | 2022-12-15 18:18 | RAD REPORT ---
EXAM DESCRIPTION: RAD - Cholangiogram Oper-Xray Or - 12/15/2022 6:05 pm CLINICAL HISTORY: LAP NICHOLAS W/ IOC COMPARISON: Abdomen Exam Limited dated 12/14/2022 FINDINGS: Intraoperative cholangiogram is submitted. Cystic duct injection was performed by christofer g surgeon. Distal common duct is mildly narrowed smoothly, without evidence of retained common duct s tone. Total fluoro time: 0.1 minutes IMPRESSION: No evidence of retained common duct stone. Smooth with mild distal common bile duct stricture is possible.
[2022-12-16] MEDS: CEFOXITIN 1 GM in NA CHLORIDE 0.9% 50 ML IVPB SCH (06:10)
[2022-12-16] MEDS: NA CHLORIDE 0.9% 1,000 ML IV SCH (06:10)
[2022-12-16 07:15] VITALS: TEMP 97.5
[2022-12-16 09:05] VITALS: BP 111/69
== END 2022-12-16 12:00 | disposition home or self-care (01) | DRG 419 ==
LOC: ER 13:05 → ERHOLD 17:39 → 4TH 20:40
PROVIDERS: ADMIT Surgery; ATTEND Surgery
PROC: BF10YZZ Fluoroscopy of Bile Ducts using Other Contrast (ICD-10-PCS; 2022-12-15)
PROC: 0FT44ZZ Resection of Gallbladder, Percutaneous Endoscopic Approach (ICD-10-PCS; principal; 2022-12-15 12:00)
DX: K80.10 Calculus of gallbladder with chronic cholecystitis without obstruction (principal); Z28.310 Unvaccinated for COVID-19; Z20.822 Contact with and (suspected) exposure to COVID-19
CPT/HCPCS: 36415; 74300; 76705; 80048; 80053; 80076; 81003; 81025; 83690; 85025; 87811; 88304; 94010; 96374; 96375; 99285; J0694; J1170; J2001; J2250; J2405; J2543; J2704; J2710; J3010; J7030; J7799